=== PATIENT | female | born 1980 | race Caucasian/White ===

== ENCOUNTER 2022-03-10 13:05 | Outpatient (CLI) | payer SELFPAY ==
[2022-03-10 13:05] VITALS: BP 138/82; PULSE 84; RESP 18; TEMP 37; O2SAT 98
[2022-03-10 13:50] VITALS: BP 139/82; PULSE 84; RESP 18; TEMP 37; O2SAT 98
[2022-03-10 14:20] VITALS: BP 128/95; PULSE 82; RESP 18; TEMP 37; O2SAT 97
== END 2022-03-10 13:06 | disposition home or self-care (01) ==
LOC: INF 13:08
PROVIDERS: PCP Naturopath; Visit Provider Family Medicine
DX: U07.1 COVID-19 (principal)
CPT/HCPCS: 96365; 96374; Q0222